=== PATIENT | female | born 1965 | race Caucasian/White ===

== ENCOUNTER 2023-06-22 07:14 | Outpatient (CLI) | payer OTHER, SELFPAY ==
--- NOTE | ~2023-06-22 | XR_ITS ---
XR hand RT min 3V 06/22/2023 07:53 Indication: Arthralgias Procedure: 3 views right hand Comparison: No prior studies for comparison. Findings: There is mild polyarticular osteoarthritis. No fracture, subluxation or dislocation. There is anatomic alignment. No focal soft tissue swelling. No foreign bodies. Impression: 1: Mild polyarticular osteoarthritis. Reviewed, dictated and finalized at location A. Impression: 1: Mild polyarticular osteoarthritis.
--- NOTE | ~2023-06-22 | XR_ITS ---
XR foot RT min 3V 06/22/2023 07:53 Indication: Arthralgias Procedure: 5 views of the right foot Comparison: No prior studies for comparison. Findings: Mild osteoarthritis of the first MTP joint. There are prominent degenerative calcaneal enth esophytes. No acute fracture or traumatic malalignment. No foreign bodies. Lisfranc joint intact. The re are degenerative changes of the tarsal metatarsal joints laterally. Impression: 1: Mild polyarticular osteoarthritis. Reviewed, dictated and finalized at location A. Impression: 1: Mild polyarticular osteoarthritis.
--- NOTE | ~2023-06-22 | XR_ITS ---
XR_[id number]_CR 06/22/2023 07:53 Indication: Arthralgias Procedure: 3 views cervical spine Comparison: No prior studies for comparison. Findings: Vertebral body heights are maintained. No prevertebral soft tissue abnormality. Odontoid pr ocess is unremarkable. There is mild multilevel uncinate and facet hypertrophy. Lung apices are daria l. Lateral masses normally aligned. Impression: 1: Mild cervical spondylosis. Reviewed, dictated and finalized at location A. Impression: 1: Mild cervical spondylosis.
--- NOTE | ~2023-06-22 | XR_ITS ---
XR foot LT min 3V 06/22/2023 07:53 Indication: Arthralgias Procedure: 4 views left foot Comparison: No prior studies for comparison. Findings: There are prominent degenerative calcaneal enthesophytes. There is mild osteoarthritis of t he first MTP joint. No acute fracture, subluxation or dislocation. Lisfranc joint intact. No foreign bodies. Impression: 1: Mild osteoarthritis of the first MTP joint. Reviewed, dictated and finalized at location A. Impression: 1: Mild osteoarthritis of the first MTP joint.
--- NOTE | ~2023-06-22 | XR_ITS ---
XR chest 2V 06/22/2023 07:53 Indication: Arthralgias Procedure: PA and lateral views the chest Comparison: No prior studies for comparison. Findings: Cardiomegaly. Mild pulmonary vascular congestion. No focal pneumonia, pleural effusion or p neumothorax. No acute osseous abnormality. Impression: 1: Mild pulmonary vascular congestion. Reviewed, dictated and finalized at location A. Impression: 1: Mild pulmonary vascular congestion.
--- NOTE | ~2023-06-22 | XR_ITS ---
XR hand LT min 3V 06/22/2023 07:53 Indication: Arthralgias Procedure: 3 views left hand Comparison: No prior studies for comparison. Findings: There is mild osteoarthritis of the interphalangeal joints and triscaphe joint. No fracture or traumatic malalignment. No erosive changes. No foreign bodies. No focal soft tissue abnormality. Impression: 1: Mild polyarticular osteoarthritis. Reviewed, dictated and finalized at location A. Impression: 1: Mild polyarticular osteoarthritis.
--- NOTE | ~2023-06-22 | XR_ITS ---
XR lumbar spine 2-3V 06/22/2023 07:52 Indication: Arthralgias Procedure: 3 views lumbar spine Comparison: No prior studies for comparison. Findings: Vertebral body heights are maintained. There is facet hypertrophy at L3-4, L4-5 and L5-S1. No evidence for spondylolisthesis. Normal lumbar lordosis. Sacral foramen are symmetric. Pedicles int act. Impression: 1: Mild lumbar spondylosis. Reviewed, dictated and finalized at location A. Impression: 1: Mild lumbar spondylosis.
== END 2023-06-22 07:15 | disposition home or self-care (01) ==
PROVIDERS: Visit Provider Physician Assistant Medical
DX: R76.8 Other specified abnormal immunological findings in serum (principal); Z79.899 Other long term (current) drug therapy; K52.839 Microscopic colitis, unspecified; M19.071 Primary osteoarthritis, right ankle and foot; M19.072 Primary osteoarthritis, left ankle and foot; M47.892 Other spondylosis, cervical region; M19.041 Primary osteoarthritis, right hand; M19.042 Primary osteoarthritis, left hand; M47.896 Other spondylosis, lumbar region
CPT/HCPCS: 71046; 72040; 72100; 73130; 73630